=== PATIENT | female | born 1960 | race Caucasian/White ===

== ENCOUNTER → 2016-10-05 | Outpatient (CLI) | payer BC | LOC: MC.RAD 09:20 | DX: Z12.31 Encounter for screening mammogram for malignant neoplasm of breast (principal) ==

== ENCOUNTER → 2017-10-09 | Outpatient (CLI) | payer BC | LOC: MC.RAD 11:00 | DX: Z12.31 Encounter for screening mammogram for malignant neoplasm of breast (principal) ==

== ENCOUNTER 2018-01-06 19:01 | Emergency (ER) | payer BC ==
[~2018-01-06] VITALS: Ht 167.6 cm; Wt 56.8 kg
[2018-01-06 19:07] VITALS: BP 166/89; TEMP 98.7
[2018-01-06] MEDS ORDERED: PREMARIN 225 MG/VIAL IJ (19:28)
[2018-01-06] MEDS ORDERED: DHEA 10 MG TAB1 EACH (19:29)
[2018-01-06] MEDS ORDERED: PROMETRIUM200 M1 PO (19:29)
[2018-01-06] MEDS ORDERED: MULTI VITAMINS1 TAB PO (19:29)
[2018-01-06] MEDS ORDERED: TUMS500 MG (19:30)
[2018-01-06] MEDS ORDERED: PROBIOTIC ACID1 EAC3 PO (19:30)
[2018-01-06 20:41] VITALS: PULSE 72
== END 2018-01-06 20:41 | disposition home or self-care (01) ==
LOC: COL.ER 19:01
DX: S69.92XA Unspecified injury of left wrist, hand and finger(s), initial encounter (principal); V94.0XXA Hitting object or bottom of body of water due to fall from watercraft, initial encounter; Y92.828 Other wilderness area as the place of occurrence of the external cause
CPT/HCPCS: Q4021

== ENCOUNTER → 2018-10-15 | Outpatient (CLI) | payer BC ==
[~2018-10-15] MED LIST: DHEA 10 MG TAB1 EACH; MULTI VITAMINS1 TAB PO; PREMARIN 225 MG/VIAL IJ; PROBIOTIC ACID1 EAC3 PO; PROMETRIUM200 M1 PO; TUMS500 MG
== END ==
LOC: MC.RAD 08:30
DX: Z12.31 Encounter for screening mammogram for malignant neoplasm of breast (principal)

== ENCOUNTER → 2020-04-05 | Outpatient (CLI) | payer BC | LOC: MC.RAD 08:45 | DX: Z12.31 Encounter for screening mammogram for malignant neoplasm of breast (principal); N63.20 Unspecified lump in the left breast, unspecified quadrant ==

== ENCOUNTER → 2020-04-08 | Outpatient (CLI) | payer BC | LOC: MC.RAD 07:00 | DX: N63.20 Unspecified lump in the left breast, unspecified quadrant (principal) ==

== ENCOUNTER → 2020-04-14 | Outpatient (CLI) | payer BC | LOC: MC.RAD 06:59 | DX: N63.20 Unspecified lump in the left breast, unspecified quadrant (principal) ==

== ENCOUNTER → 2021-04-06 | Outpatient (CLI) | payer BC | LOC: MC.RAD 12-29 09:00 | DX: Z12.31 Encounter for screening mammogram for malignant neoplasm of breast (principal) ==